=== PATIENT | female | born 1940 | race Caucasian/White ===

== ENCOUNTER 2017-11-16 08:11 | Emergency (ER) | payer MEDICARE ==
[2017-11-16] MEDS ORDERED: Bupivacaine 0.5% 10 ML VIAL ONE (08:59)
[2017-11-16] MEDS ORDERED: Fentanyl 100 MCG/2 ML VIAL ONE (09:11)
--- NOTE | 2017-11-16 09:40 | RAD ---
LEFT HUMERUS 2 VIEWSLT HUMERUS 2 VIEWS: HISTORY: A 77-year-old female with a history of left upper arm pain after a fall at home. FINDINGS: There is dislocation of the glenohumeral joint which appears to be anterior subcoracoid. The humerus itself appears intact. IMPRESSION: Glenohumeral joint dislocation. No evidence for acute humeral fracture of the visualized shaft. POS: [facility]
--- NOTE | 2017-11-16 09:41 | RAD ---
LEFT SHOULDER 2 VIEWS: HISTORY: A 77-year-old female with a history of left upper arm pain following a fall at home. FINDINGS: There is anterior subcoracoid dislocation of the left glenohumeral joint. Degenerative changes of th e AC joint. No significant acute fracture. IMPRESSION: Anterior subcoracoid dislocation left glenohumeral joint. POS: [facility]
--- NOTE | 2017-11-16 13:01 | RAD ---
LEFT SHOULDER 2 VIEWS: HISTORY: A 77-year-old female with a history of post reduction of left shoulder dislocation. COMPARISON: 11/16/17, 8:38 a.m. study. FINDINGS: The previously noted dislocation has been repositioned in satisfactory location. IMPRESSION: Relocation of the previously noted left shoulder dislocation. POS: [facility]
--- NOTE | 2017-11-16 13:16 | RAD ---
LEFT WRIST 2 VIEWS: HISTORY: A 77-year-old female with a history of fall and left wrist pain and swelling. There does appear to be some swelling at the level of the distal forearm and wrist. Marked arthrosis changes of the wrist. No evidence for acute fracture. IMPRESSION: Soft tissue swelling. 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 If the patient has persistent or worsening pain which does not resolve, a followup complete wrist maria eugenia dy in 5-7 days should be considered. POS: [facility]
== END 2017-11-16 11:41 | disposition home or self-care (01) ==
LOC: ERS 08:11
DX: S43.015A Anterior dislocation of left humerus, initial encounter (principal); E03.9 Hypothyroidism, unspecified; G58.9 Mononeuropathy, unspecified; W18.30XA Fall on same level, unspecified, initial encounter
CPT/HCPCS: 23650; 96374; J3010; J3490